=== PATIENT | male | born 1980 | race Caucasian/White ===

== ENCOUNTER 2024-09-26 14:43 | Outpatient (REF) | payer MEDICAID, SELFPAY ==
--- OUTSIDE RECORDS SUMMARY | 2024-09-26 14:53 | XMS_ITS | Encounter Summary ---
Author Organization [employer] Address [address] [place] [address] Care Team Providers Care Peer Tutor Name Role Phone Fredy Arechiga MD Primary Care Prov ider Encounter Details Date Type Department Care Team (Late st Contact Info) Description 09/26/2024 1:45 PM EDT Office Visit [facility] [address] [place] [address] Fredy Arechiga MD [address] [place] [address] Encounter for immunization (Primary Dx); Dietary counseling; Exercise counseling; Pain in joint of right hand Social History Tobacco Use Types Packs/Day Years Used Date Smoking Tobacco: Never Smokeless Tobacco: Never Alcohol Use Standard Drinks/Week Comments Yes 0 (1 standard drink = 0.6 oz pur e alcohol) socially 1-2 times a month Alcohol Answer Date Recorded How often do you have a drink containing alcohol ? 1 09/26/2024 How many drinks containing a lcohol do you have on a typical day when you are drinking? 0 09/26/2024 How often do you have six or more drinks on one occasion? 0 09/26/2024 Depression Answer Date Recorded Patient Health Questionnaire-9 Score 0 09/26/2024 Patient Health Questionnaire-9 Score 0 09/26/2024 Last PHQ-9: Questionnaire Data Not on file 0 09/26/2024 Housing Stability Answer Date Recorded What is your housing situation today? I have alvarez encarnacion 03/07/[address] you li ve. Do you have problems with any of the following? None of the above 03/07/2024 Food Insecurity Answer Date Recorded Within the past 12 months, y ou worried that your food would run out before you got money to buy more: Never True 03/07/2024 Within the past 12 months,th e food you bought just didn't last and you didn't have enough money to get more: Never True Transportation Answer Date Recorded In the past 12 months, has l ack of transportation kept you from medical appts, meetings, work or from getting things needed for daily living? No 03/07/2024 Utilities Answer Date Recorded In the past 12 months, has t he [employer], gas, oil or water company threatened to shut off services in your home? No 03/07/2024 Depression Answer Date Recorded Patient Health Questionnaire-2 Score 0 09/26/2024 Internet Access Answer Date Recorded Internet Access Q1 Yes 03/07/2024 Internet Access Q2 Not on file 03/07/2024 Sex and Gender Information Value Date Recorded Sex Assigned at Male 03/02/2024 2:07 PM EDT Legal Sex Male 3:33 PM EDT Gender Identity Male 12/15/2023 3:34 PM EDT Sexual Orientation Straight 03/02/2024 2: 07 PM EDT documented as of this encounter Last Filed Vital Signs Vital Sign Reading Time Taken Comments Blood Pressure 140/97 09/26/2024 1:31 PM EDT Pulse 72 09/26/2024 1:31 PM EDT Temperature 36.8 ??C (98.3 ??F) 09/26/2024 1:31 PM ED T Respiratory Rate 20 09/26/2024 1:31 PM EDT Oxygen Saturation 98% 09/26/2024 1:31 PM EDT Inhaled Oxygen Concentration - - Weight 98.9 kg (218 lb) 09/26/2024 1:31 PM EDT Height 182.9 cm (6') 09/26/2024 1:31 PM EDT Body Mass Index 29.57 09/26/2024 1:31 PM EDT documented in this encounter Functional Status * Over the past 2 weeks, how often have you been bothered by any of the following problems? Question Answer Date of Assessment Author Patient Health Questionnaire-2 Score 0 09/08 1:35 PM EDT Kim Bcek MA * Little interest or pleasure in doing things Answer Date of Assessment Author Not at all 09/26/2024 1:35 PM EDT Vaughn Beck MA * Feeling down, depressed, or hopeless Answer Date of Assessment Author Not at all 09/26/2024 1:35 PM EDT Vaughn Beck MA * Trouble falling or staying asleep, or sleeping too much Answer Date of Assessment Author Not at all 09/26/2024 1:35 PM EDT Vaughn Beck MA * Feeling tired or having little energy Answer Date of Assessment Author Not at all 09/26/2024 1:35 PM EDT Vaughn Beck MA * Poor appetite or overeating Answer Date of Assessment Author Not at all 09/26/2024 1:35 PM EDT Vaughn Beck MA * Feeling bad about yourself - or that you are a failure or have let yourself or your family down Answer Date of Assessment Author Not at all 09/26/2024 1:35 PM EDT Vaughn Beck MA * Trouble concentrating on things, such as reading the newspaper or watching television Answer Date of Assessment Author Not at all 09/26/2024 1:35 PM EDT Vaughn Beck MA * Moving or speaking so slowly that other people could have noticed? Or the opposite - being so fidgety or restless that you have been moving around a lot more than usual. Answer Date of Assessment Author Not at all 09/26/2024 1:35 PM EDT Vaughn Beck MA * Thoughts that you would be better off or hurting yourself in some way Answer Date of Assessment Author Not at all 09/26/2024 1:35 PM EDT Vaughn Beck MA * Patient Health Questionnaire-9 Score Answer Date of Assessment Author 0 09/26/2024 1:35 PM EDT Vaughn Beck MA documented as of this encounter Plan of Treatment Scheduled Orders Name Type Priority Associated Diagnoses Orde r Schedule Hepatitis B Core Antibody, Total Lab Routine Encounter for immunization Expected: 09/26/2024 (Approximate), Expires: 09/26/2025 Hepatitis B surface antigen, EIA Lab Routine Encounter for immunization Expected: 09/26/2024 (Approximate), Expires: 09/26/2025 Hepatitis B Surface Antibody, Qualitative Lab Routine Encounter for immunization Expected: 09/26/2024 (Approximate), Expires: 09/26/2025 Hepatitis C Antibody with Reflex to HCV, RNA, Quantitative, Real-Time PCR Lab Routine Encounter for immunization Expected: 09/26/2024, Expires: 09/26/2025 Chlamydia/N. Gonorrhoeae RNA, TMA, Urogenitial Microbiology Routine Encounter for immunization Ordered: 09/26/2024 HIV-1/2 Antigen and Antibodies, Fourth Generation, with Reflexes Lab Routine Encounter for immunization Expected: 09/26/2024 (Approximate), Expires: 09/26/2025 CBC auto differential Lab Routine Encounter for immunization Expected: 09/26/2024 (Approximate), Expires: 09/26/2025 Lipid Panel, Standard Lab Routine Encounter for immunization Expected: 09/26/2024 (Approximate), Expires: 09/26/2025 Hemoglobin A1c Lab Routine Encounter for immunization Expected: 09/26/2024 (Approximate), Expires: 09/26/2025 XR Hand 3+ Views Right Imaging Routine Pain in joint of right hand Expected: 09/26/2024, Expires: 09/26/2025 documented as of this encounter Visit Diagnoses Diagnosis Encounter for immunization- Primary Dietary counseling Dietary surveillance and counseling Exercise counseling Pain in joint of right hand documented in this encounter Additional Health Concerns Assessment Noted Time PHQ-9 Depression Total Score: 0 09/27/19 25 1:35 PM EDT documented as of this encounter Care Teams Peer Tutor Relationship Specialty Start Date End Date Fredy Arechiga MD [address] [place] [id number] PCP - General Internal Medicine 03/08/24 documented as of this encounter
--- OUTSIDE RECORDS SUMMARY | 2024-09-26 14:53 | XMS_ITS | Encounter Summary ---
Author Organization [employer] Address [address] [place] [address] Care Team Providers Care Hris Specialist Name Role Phone Fredy Arechiga MD Primary Care Prov ider Encounter Details Date Type Department Care Team (Latest Contact Info) Description 09/26/2024 Travel Social History Tobacco Use Types Packs/Day Years [...] the past 12 months, has t he electric, gas, oil or water company threatened to [...] PM EDT documented as of this encounter Functional Status * Over the past 2 weeks, how often have you been bothered by any of the following problems? Question Answer Date of Assessment Author Patient Health Questionnaire-2 Score 0 09/08 1:35 PM EDT Kim Beck MA * Little interest or pleasure in [...] as of this encounter Plan of Treatment Not on file documented as of this encounter Visit Diagnoses Not on filedocumented in this encounter Additional Health Concerns Assessment Noted Time PHQ-9 Depression Total Score: 0 09/27/19 25 1:35 PM EDT documented as of this encounter Care Teams Hris Specialist Relationship Specialty Start Date End Date Fredy Arechiga MD [address] [place] [id number] PCP - General Internal Medicine 03/08/24 documented as of this encounter
--- OUTSIDE RECORDS SUMMARY | 2024-09-26 14:53 | XMS_ITS | Clinical Summary ---
Author Organization [employer] [facility] Address [address] [facility] [address] [place] [address] Care Team Providers Care Organizational Research Consultant Name Role Phone Fredy Arechiga MD Primary Care Prov ider Allergies No known active allergies Medications Multiple Vitamin (ONE-A-DAY MENS PO) Take by mouth. Active Active Problems Problem Noted Date Diagnosed Date Encounter for medical examination to establish c are 03/07/2024 Assessment & Plan (03/07/2024 2:24 PM EDT): No pcp f/up in 5 years No hx of hospitalization [place] visit on 03/02/24 Pmhx- Psh- All- Meds: multivitamins Encounters Date Type Department Care Team Description 09/26/2024 1:45 PM EDT Office Visit [facility] [address] [place] [address] Fredy Arechiga MD Encounter for immunization (Primary Dx); Dietary counseling; Exercise counseling; Pain in joint of right hand 09/26/2024 Travel 09/19/2024 Patient Outreach [facility] [address] [place] [address] Fredy Arechiga MD Pre-visit Planning (SDOH screening negative and Tobacco screening negative) 07/22/2024 Population Health Risk Score [facility] ([facility]) Department [address] [facility] [address] [place] [address] Provider, Population Health Generic from Last 3 Months Immunizations Immunization Administration Dates Next Due Tdap 09/26/2024 Family History Medical History Relation Name Comments COPD Father Breast cancer Maternal Grandmother Breast cancer Mother Hypertension Mother Lung cancer Mother Lupus Sister Relation Name Status Comments Father Maternal Grandmother Mother Sister Social History Tobacco Use Types Packs/Day Years Used Date Smoking Tobacco: Never Smokeless Tobacco: Never Tobacco Cessation:Counseling Given: Not Answered Alcohol Use Standard Drinks/Week Comments Yes 0 [...] Orientation Straight 03/02/2024 2: 07 PM EDT Last Filed Vital Signs Vital Sign Reading [...] Mass Index 29.57 09/26/2024 1:31 PM EDT Plan of Treatment Health Maintenance Due Date Last Done Comments HIV Screening 1981 Lipid Panel 1981 Disability Screening 1981 Family Planning (PISQ) 1996 Hepatitis C Screening 1999 Hepatitis B Vaccines (1 of 3 - 19+ 3-dose series) 2000 COVID-19 Vaccine ( - 2023-2 5 season) 2024 Influenza Vaccine (#1) 2024 Alcohol/Substance Use Screening 09/26/2025 09/26/2024 Depression Screening 09/26/2025 09/26/2024, 09/26/2024 SDOH Screening 09/26/2025 09/26/2024 Tobacco Screening 09/26/2025 09/26/2024 Zoster Vaccines (1 of 2) 2031 DTaP/Tdap/Td Vaccines (2 - T d or Tdap) 09/26/2034 09/26/2024 RSV Patients and Patients Aged 60 years or older (1 - 1-dose 75+ series) 2056 HIB Vaccines Aged Out No longer eligi ble based on patient's age to complete this topic HPV Vaccines Aged Out No longer eligi ble based on patient's age to complete this topic Hepatitis A Vaccines Aged Out No long er eligible based on patient's age to complete this topic IPV Vaccines Aged Out No longer eligi ble based on patient's age to complete this topic Meningococcal B Vaccine Aged Out No l onger eligible based on patient's age to complete this topic Meningococcal Vaccine Aged Out No diamante melinda eligible based on patient's age to complete this topic Pneumococcal Vaccine: Pediatrics (0 to 5 Years) and At-Risk Patients (6 to 49) Years) Aged Out No longer eligible b ased on patient's age to complete this topic RSV under 20 months Aged Out No longe r eligible based on patient's age to complete this topic Rotavirus Vaccines Aged Out No longer eligible based on patient's age to complete this topic [facility] Care Teams Organizational Research Consultant Relationship Specialty Start Date End Date Fredy Arechiga MD [address] [place] [address] PCP - General Internal Medicine 03/08/24
[2024-09-26 17:27] LABS: MANUAL DIFF FLAG NO
[2024-09-26 17:29] LABS: Basophils Percent Auto 0.5 % (0-2); Eosinophils Absolute Auto 0.1 X10*3/uL (0.0-0.4); Eosinophils Percent Auto 2.1 % (0-4); Hematocrit 42.1 % (42.0-52.0); Hemoglobin 14.6 g/dl (14.0-18.0); Imm Gran Abs Auto 0.02 X10*3/uL (0.00-0.03); Imm Gran Pct Auto 0.3 % (0.0-0.4); Lymphocytes Absolute Auto 1.9 X10*3/uL (1.2-4.9); Lymphocytes Percent Auto 30.7 % (20-40); Mean Corpuscular HGB Conc 34.7 g/dl (31.0-36.0); Mean Corpuscular Hemoglobin 30.3 pg (27.0-33.0); Mean Corpuscular Volume 87.3 fL (80.0-98.0); Mean Platelet Volume 9.6 fL (9.4-12.4); Monocytes Absolute Auto 0.6 X10*3/uL (0.1-1.2); Monocytes Percent Auto 9.7 % (2-11); Neutrophils Absolute Auto 3.5 x10*3/uL (2.0-8.3); Neutrophils Percent Auto 56.7 % (45-73); Platelet Count 221 X10*3/uL (160-400); Red Blood Count 4.82 X10*6/uL (4.60-5.80); Red Cell Distribution Width 12.5 % (11.0-16.0); White Blood Count 6.2 X10*3/uL (4.8-10.8)
[2024-09-26 17:43] LABS: Cholesterol 180 mg/dL (<200); HDL Cholesterol 44 mg/dL (>40); LDL Cholesterol Calculated 109 mg/dL (<100); Triglycerides 136 mg/dL (<150)
[2024-09-27 03:24] LABS: CT PCR NOT DETECTED (Not Detect.); NG PCR NOT DETECTED (Not Detect.)
[2024-09-27 04:06] LABS: HBsAGNum1 0.48 S/CO (0.00-0.99); HIV AB/AG Nonreactive (Nonreactive); HIV Num 1 0.08 S/CO (0.00-0.99); Hepatitis B Core Antibody Nonreactive (Nonreactive); Hepatitis B Surface Antigen Negative (Negative); ~HepC Num1 0.14 S/CO (0.00-0.79); ~Hepatitis B Surface Antibody REACTIVE (Nonreactive); ~Hepatitis C Antibody Nonreactive (Nonreactive)
[2024-09-27 06:08] LABS: Estimated Average Glucose 108 mg/dL; Hemoglobin A1C 135.9734 umol/L; Hemoglobin A1c % 5.4 % (<6.0); Total Hemoglobin (HGBA1C) 3833.1061 umol/L
== END 2024-09-26 14:44 | disposition home or self-care (01) ==
LOC: HO.CHCLDS 14:43
PROVIDERS: Visit Provider Nurse Practitioner Family
DX: Z01.84 Encounter for antibody response examination (principal)
CPT/HCPCS: 36415; 80061; 83036; 85025; 86704; 86706; 86803; 87340; 87389; 87491; 87591